=== PATIENT | female | born 1965 | race African-American/Black ===

== ENCOUNTER 2021-05-13 07:42 | Observation (INO) | payer OTHER ==
[~2021-05-13] VITALS: Ht 170.2 cm; Wt 106.6 kg
[2021-05-13 08:40] LABS: BASOPHILS % 0.5 % (0.0-1.0); EOSINOPHILS # (AUTO) 0.1 (0.0-0.4); EOSINOPHILS % 0.9 % (0.0-6.0); HEMATOCRIT 35.2 % (34.2-44.1); HEMOGLOBIN 11.6 g/dL (12.0-16.0); LYMPHOCYTES # (AUTO) 2.3 (1.0-3.2); LYMPHOCYTES % 25.4 % (18.0-39.1); MONOCYTES # (AUTO) 0.6 (0.2-0.8); NEUTROPHILS # (AUTO) 5.8 (2.1-6.9); PLATELET COUNT 376 x10e3/uL (140-360); RED BLOOD COUNT 4.14 x10e6/uL (3.6-5.1); RED CELL DISTRIBUTION WIDTH 14.5 % (11.7-14.4)
[2021-05-13 08:55] LABS: INR 0.97; PROTHROMBIN TIME 13.7 seconds (11.9-14.5)
[2021-05-13 08:56] LABS: PARTIAL THROMBOPLASTIN TIME 42.5 seconds (23.8-35.5)
[2021-05-13 08:57] LABS: CLARITY,URINE TURBID (CLEAR); COLOR,URINE YELLOW (YELLOW); LEUKOCYTE ESTERASE ,URINE MODERATE (NEGATIVE); NITRITE,URINE NEGATIVE (NEGATIVE); PROTEIN,URINE DIPSTICK 2+ (NEGATIVE)
[2021-05-13 08:58] LABS: KETONES,URINE NEGATIVE (NEGATIVE); RBC,URINE >50 /HPF (0-5); URINE UROBILINOGEN 0.2 mg/dL (0.2 - 1); WBC,URINE (MAN) >50 /HPF (0-5)
[2021-05-13 08:59] LABS: BACTERIA,URINE FEW /HPF; EPITHELIAL CELLS,URINE FEW /LPF
[2021-05-13 09:04] LABS: ALBUMIN 3.3 g/dL (3.5-5.0); ALBUMIN/GLOBULIN RATIO 0.7 (0.8-2.0); ANION GAP 15.1 mmol/L (8-16); CALCIUM 9.7 mg/dL (8.4-10.2); CREATININE, SERUM 1.34 mg/dL (0.57-1.11); POTASSIUM 4.1 mmol/L (3.5-5.1)
[2021-05-13] MEDS ORDERED: SODIUM CHLORIDE 0.9% 1000ML 1,000 ML IV ONE (09:30)
[2021-05-13] MEDS ORDERED: IOPAMIDOL 300MG/ML 50ML INFUS..BTL IV ONE ×2 (11:18→12:13)
[2021-05-13] MEDS ORDERED: B&O 60MG R/S 60 MG SUPP PR ONE (11:19)
[2021-05-13] MEDS ORDERED: ACETAMINOPHEN/CODEINE 300MG - 30MG TAB PO PRN (12:45)
[2021-05-13] MEDS ORDERED: PROPOFOL IV EMULSION 10 MG/ML 20 ML VIAL ONE (12:47)
[2021-05-13] MEDS ORDERED: ROCURONIUM BROMIDE 10 MG/ML 5ML VIAL IV ONE (12:47)
[2021-05-13] MEDS ORDERED: LIDOCAINE HCL 2% LOCAL INJ 5 ML SDV VIAL INJ ONE (12:47)
[2021-05-13] MEDS ORDERED: ATROPINE SULFATE 1 MG/ML VIAL ONE (12:47)
[2021-05-13] MEDS ORDERED: POVIDONE IODINE 0.05% 0.05 % ML PO ONE (12:47)
[2021-05-13] MEDS ORDERED: DEXAMETHASONE SOD PHOS INJ 4 MG/ML SDV ONE (12:47)
[2021-05-13] MEDS ORDERED: SEVOFLURANE INHAL SOLN 250 ML PEN BTL ONE (12:47)
[2021-05-13] MEDS ORDERED: NEOSTIGMINE 1 MG/ML 10ML VIAL ONE (12:47)
[2021-05-13] MEDS ORDERED: ONDANSETRON HCL INJ 2MG/ML 2ML 2 MG/ML VIAL ONE (12:47)
[2021-05-13] MEDS: Cefazolin 1 GM in SODIUM CHLORIDE 0.9% 50ML 50 ML IV SCH (13:00)
[2021-05-13] MEDS ORDERED: FENTANYL CITRATE/PF 100MCG/2 ML INJ ONE ×2 (13:01→13:59)
[2021-05-13 13:33] VITALS: BP 147/77
[2021-05-13 13:38] VITALS: BP 147/77
[2021-05-13] MEDS ORDERED: MIDAZOLAM HCL 2 MG/2 ML VIAL ONE (13:59)
[2021-05-13] MEDS: SODIUM CHLORIDE 0.9% 1000ML 1,000 ML IV SCH ×2 (14:27→23:17)
[2021-05-13] MEDS ORDERED: Morphine 2mg Syringe 2 MG/ML SYR IV ONE (16:30)
[2021-05-13 20:00] VITALS: BP 126/63
[2021-05-14] VITALS (8 sets, daily range): BP systolic 117–125; BP diastolic 58–65
[2021-05-14] MEDS: Cefazolin 1 GM in SODIUM CHLORIDE 0.9% 50ML 50 ML IV SCH ×2 (00:19→13:05)
[2021-05-14] MEDS: SODIUM CHLORIDE 0.9% 1000ML 1,000 ML IV SCH ×2 (04:45→08:29)
[2021-05-14] MEDS ORDERED: LIDOCAINE HCL 1% LOCAL INJ 20 ML VIAL ONE (16:05)
[2021-05-14] MEDS ORDERED: IOPAMIDOL 300MG/ML 100 ML INFUS..BTL IV ONE (16:05)
[2021-05-14] MEDS ORDERED: SODIUM CHLORIDE 0.9% 250ML 250 ML ONE (16:05)
[2021-05-14] MEDS ORDERED: MIDAZOLAM HCL 2 MG/2 ML VIAL ONE (16:10)
[2021-05-14] MEDS ORDERED: SODIUM CHLORIDE 0.9% 500ML 500 ML ONE (16:11)
[2021-05-14] MEDS ORDERED: FENTANYL CITRATE/PF 100MCG/2 ML INJ ONE (16:11)
[2021-05-14] MEDS ORDERED: CEFTRIAXONE SOD 1 GM 50 ML IV ONE (16:32)
[2021-05-14] MEDS ORDERED: LEVOFLOXACIN250 MG PO (17:48)
== END 2021-05-14 19:09 | disposition home or self-care (01) ==
LOC: ER 07:46 → ERHOLD 10:04 → MED/SURG 13:22
PROVIDERS: ADMIT Obstetrics & Gynecology; ATTEND Obstetrics & Gynecology
DX: N82.1 Other female urinary-genital tract fistulae (principal); R39.0 Extravasation of urine; E66.9 Obesity, unspecified; S37.19XA Other injury of ureter, initial encounter; Z68.36 Body mass index [BMI] 36.0-36.9, adult; I10 Essential (primary) hypertension; Z20.822 Contact with and (suspected) exposure to COVID-19
CPT/HCPCS: 36415; 50432; 52351; 74420; 74470; 76942; 80053; 81001; 85025; 85610; 85730; 86850; 86900; 94799 ×2; 99284; C1729; C1758; C1769 ×2; G0378 ×2; J0461; J0690 ×2; J0696; J1100; J2001 ×2; J2250 ×2; J2270; J2405; J2704; J2710; J3010 ×2; J7030 ×2; J7040; J7050; Q9967 ×2; U0002

== ENCOUNTER → 2024-02-27 | Day surgery (SDC) | payer BC, OTHER ==
[~2024-02-27] MED LIST: ACETAMINOPHEN/CODEINE 300MG - 30MG TAB ONE; ALEVE220 M1 PO; APPLE CIDER VI1 EAC1 PO; CEFAZOLIN SODIUM 2 GM ONE; DEXAMETHASONE SOD PHOS INJ 4 MG/ML SDV ONE; DOCUSATE SODIU100 MG PO; FENTANYL CITRATE/PF 100MCG/2 ML INJ ONE; FISH OIL 1,0001 EACH PO; IOPAMIDOL 610MG/1ML 300 MG/ML VIAL IV ONE; LEVOFLOXACIN250 MG PO; LIDOCAINE HCL 2% LOCAL INJ 5 ML SDV VIAL INJ ONE; LOSARTAN POTAS100 MG PO; ONDANSETRON HCL INJ 2MG/ML 2ML 2 MG/ML VIAL ONE; PROBIOTIC & AC1 EACH PO; PROPOFOL IV EMULSION 10 MG/ML 20 ML VIAL ONE; SCOPOLAMINE 1 MG PATCH ONE; SEVOFLURANE INHAL SOLN 250 ML PEN BTL ONE; VESICARE5 MG PO; VITAMIN C1000 MG PO; VITAMIN D3 COM1 EACH PO
[2024-02-27] MEDS: LACTATED RINGER'S 1,000 ML ONE (06:35)
[2024-02-27] MEDS: ACETAMINOPHEN/CODEINE 300MG - 30MG TAB PO ONE (10:20)
[2024-02-27 10:45] VITALS: BP 147/93; PULSE 60; RESP 13; O2SAT 100
== END | disposition home or self-care (01) ==
LOC: OR 05:42
PROVIDERS: ATTEND Urology
DX: N13.30 Unspecified hydronephrosis (principal); Z98.890 Other specified postprocedural states; N39.0 Urinary tract infection, site not specified; I10 Essential (primary) hypertension; Z01.810 Encounter for preprocedural cardiovascular examination; Z79.899 Other long term (current) drug therapy
CPT/HCPCS: 52005; 74420; 93005; C1758 ×2; J1100; J2001; J2405; J2704; J3010; J7121; Q9967

== ENCOUNTER → 2024-04-17 | Outpatient (REF) | payer BC ==
[~2024-04-17] MED LIST changes: +ACETAMINOPHEN 325 MG TAB ONE; -ACETAMINOPHEN/CODEINE 300MG - 30MG TAB ONE; -CEFAZOLIN SODIUM 2 GM ONE; +CEFTRIAXONE 1 GM VIAL ONE; -DEXAMETHASONE SOD PHOS INJ 4 MG/ML SDV ONE; +IOPAMIDOL 370 MG/ML 100 ML INFUS..BTL INJ ONE; -IOPAMIDOL 610MG/1ML 300 MG/ML VIAL IV ONE; +LIDOCAINE HCL 1% LOCAL INJ 20 ML VIAL ONE; -LIDOCAINE HCL 2% LOCAL INJ 5 ML SDV VIAL INJ ONE; +MIDAZOLAM HCL 2 MG/2 ML VIAL ONE; -ONDANSETRON HCL INJ 2MG/ML 2ML 2 MG/ML VIAL ONE; -PROPOFOL IV EMULSION 10 MG/ML 20 ML VIAL ONE; -SCOPOLAMINE 1 MG PATCH ONE; -SEVOFLURANE INHAL SOLN 250 ML PEN BTL ONE; +SODIUM CHLORIDE 0.9% 250ML 250 ML ONE; +SODIUM CHLORIDE 0.9% 500ML 500 ML ONE
[2024-04-17 13:01] LABS: BASOPHILS % 0.4 % (0.0-1.0); EOSINOPHILS # (AUTO) 0.1 (0.0-0.4); EOSINOPHILS % 1.2 % (0.0-6.0); HEMATOCRIT 41.6 % (34.2-44.1); HEMOGLOBIN 13.8 g/dL (12.0-16.0); LYMPHOCYTES # (AUTO) 1.6 (1.0-3.2); LYMPHOCYTES % 27.6 % (18.0-39.1); MEAN CORPUSCULAR HGB CONC 33.2 g/dL (31-35); MEAN CORPUSCULAR VOLUME 84.6 fL (81-99); MONOCYTES # (AUTO) 0.5 (0.2-0.8); MONOCYTES % 7.9 % (4.4-11.3); NEUTROPHILS # (AUTO) 3.6 (2.1-6.9); NEUTROPHILS % 62.5 % (38.7-80.0); PLATELET COUNT 210 x10e3/uL (140-360); RED BLOOD COUNT 4.92 x10e6/uL (3.6-5.1); RED CELL DISTRIBUTION WIDTH 15.2 % (11.7-14.4); WHITE BLOOD COUNT 5.69 x10e3/uL (4.8-10.8)
[2024-04-17 13:15] LABS: INR 0.92; PROTHROMBIN TIME 12.8 seconds (11.9-14.5)
[2024-04-17 13:16] LABS: PARTIAL THROMBOPLASTIN TIME 32.2 seconds (23.8-35.5)
[2024-04-17 13:19] LABS: CALCIUM 9.8 mg/dL (8.4-10.2)
== END ==
LOC: DX 12:09
PROVIDERS: ATTEND Urology
DX: N13.30 Unspecified hydronephrosis (principal)
CPT/HCPCS: 36415; 50694; 76942; 80048; 85025; 85610; 85730; 87086; J0690; J0696; J2003; J2250; J3010; J7040; J7050; Q9967; 50432; 99152; 99153; C1769

== ENCOUNTER → 2024-06-24 | Day surgery (SDC) | payer BC ==
[~2024-06-24] MED LIST changes: -ACETAMINOPHEN 325 MG TAB ONE; -CEFTRIAXONE 1 GM VIAL ONE; -FENTANYL CITRATE/PF 100MCG/2 ML INJ ONE; -IOPAMIDOL 370 MG/ML 100 ML INFUS..BTL INJ ONE; -LIDOCAINE HCL 1% LOCAL INJ 20 ML VIAL ONE; -MIDAZOLAM HCL 2 MG/2 ML VIAL ONE; +NITROFURANTOIN100 MG PO; -SODIUM CHLORIDE 0.9% 250ML 250 ML ONE; -SODIUM CHLORIDE 0.9% 500ML 500 ML ONE
[2024-06-24] MEDS: LACTATED RINGER'S 1,000 ML ONE (10:57)
[2024-06-24] MEDS: CEFAZOLIN SODIUM 2 GM ONE (10:57)
[2024-06-24 12:38] VITALS: TEMP 98.6
[2024-06-24] MEDS: HYDRALAZINE HCL 20 MG/ML VIAL ONE (13:52)
[2024-06-24 14:05] VITALS: BP 164/83; PULSE 58; RESP 16; O2SAT 98
== END | disposition home or self-care (01) ==
LOC: OR 10:31
PROVIDERS: ATTEND Urology
DX: N13.30 Unspecified hydronephrosis (principal); Z46.6 Encounter for fitting and adjustment of urinary device; Z43.6 Encounter for attention to other artificial openings of urinary tract; I10 Essential (primary) hypertension; E66.9 Obesity, unspecified; Z01.810 Encounter for preprocedural cardiovascular examination; Z79.1 Long term (current) use of non-steroidal anti-inflammatories (NSAID); Z79.899 Other long term (current) drug therapy; Z87.828 Personal history of other (healed) physical injury and trauma
CPT/HCPCS: 50389; 52005; 74420; 87086; 87186; 93005; C1758 ×2; J0360; J7121

== ENCOUNTER → 2024-09-25 | Outpatient (REF) | payer BC | LOC: US 12:53 | PROVIDERS: ATTEND Urology | DX: N13.30 Unspecified hydronephrosis (principal) | CPT/HCPCS: 76770; 76857 ==

== ENCOUNTER 2024-11-27 16:36 | Emergency (ER) | payer BC ==
[~2024-11-27] VITALS: Ht 167.6 cm; Wt 108.9 kg
[2024-11-27 17:16] VITALS: PULSE 69; RESP 16; TEMP 97.9; O2SAT 100
[2024-11-27] MEDS ORDERED: CEPHALEXIN500 MG PO (18:28)
[2024-11-27] MEDS ORDERED: KETOROLAC TROME10 MG PO (18:28)
== END 2024-11-27 18:39 | disposition home or self-care (01) ==
LOC: ER 17:56
DX: S91.202A Unspecified open wound of left great toe with damage to nail, initial encounter (principal); W22.09XA Striking against other stationary object, initial encounter; Y93.01 Activity, walking, marching and hiking; Y92.89 Other specified places as the place of occurrence of the external cause; I10 Essential (primary) hypertension
CPT/HCPCS: 99283